=== PATIENT | male | born 1970 | race Caucasian/White ===

== ENCOUNTER 2017-01-30 04:48 | Emergency (ER) | payer MEDICAID ==
[2017-01-30] MEDS ORDERED: Dexamethasone 4 MG/ML SDV IVPUSH ONE (05:11)
--- NOTE | 2017-01-30 05:17 | EDM.PDOC ---
ED HPI GENERAL MEDICAL PROBLEM - General Chief Complaint: Respiratory Problem Stated Complaint: DIFFICULTY BREATHING Time Seen by Provider: 01/30/17 05:04 Source of Information: Reports: Patient, Family History Limitations: Reports: No Limitations - History of Present Illness INITIAL COMMENTS - FREE TEXT/NARRATIVE: 46 year old male with known hx of severe FRANCHESCA, fell asleep last nite without CPAP and was snoring heavily. attempted to place CPAP, but he continued to snore. This AM upon awakening had severe sore throat and sense of swelling in back of throat. Hard to breathe, feeling like he might choke. Prior to sleep was feeling well. Denies fever. Has a hx of mild COPD, not using meds for this. Denies wheezing or cough Duration: Hour(s): (2), Improving Improves with: Reports: None Worsens with: Reports: Breathing Associated Symptoms: Reports: Shortness of Breath. Denies: Fever/Chills, Nausea /Vomiting Right 1-Thumb Pain Score (Numeric/FACES): 3 - Related Data Allergies Allergy/AdvReac Type Severity Reaction Status Date / Time Penicillins Allergy Cannot Verified 01/30/17 05:02 Remember Sulfa (Sulfonamide Allergy Cannot Verified 01/30/17 05:02 Antibiotics) Remember vancomycin Allergy Rash Verified 01/30/17 05:02 Home Meds: Home Meds Ibuprofen [Advil] 400 mg PO Q4H PRN 01/23/14 [History] Gabapentin [Gabapentin] 1 tab PO DAILY 11/27/14 [History] Omeprazole 20 mg PO BID 11/27/14 [History] Aspirin 325 mg PO DAILY 01/30/17 [History] Tamsulosin HCl [Tamsulosin HCl] 0.4 mg PO DAILY 01/30/17 [History] Past Medical History Cardiovascular History: Reports: Hypertension, Pacemaker Respiratory History: Reports: COPD, Sleep Apnea Gastrointestinal History: Reports: GERD Genitourinary History: Reports: BPH - Past Surgical History Other HEENT Surgeries/Procedures: tooth pulled bottom r. Cardiovascular Surgical History: Reports: Pacer Musculoskeletal Surgical History: Reports: Shoulder Surgery Other Musculoskeletal Surgeries/Procedures:: r acl repair. Social & Family History - Tobacco Use Smoking Status *Q: Current Every Day Smoker Years of Tobacco use: 20 Packs/Tins Daily: 1 Used Tobacco, but Quit: No Second Hand Smoke Exposure: Yes - Caffeine Use Caffeine Use: Reports: Coffee - Alcohol Use Days Per Week of Alcohol Use: 0 - Recreational Drug Use Recreational Drug Use: No Drug Use in Last 12 Months: Yes Recreational Drug Type: Reports: Marijuana/Hashish Recreational Drug Use Frequency: Binges ED ROS GENERAL - Review of Systems Review Of Systems: See Below Constitutional: Denies: Fever, Chills, Malaise, Night Sweats HEENT: Reports: Throat Pain, Throat Swelling. Denies: Dental Pain, Ear Pain Respiratory: Reports: Shortness of Breath. Denies: Wheezing, Cough Cardiovascular: Reports: No Symptoms Endocrine: Reports: No Symptoms GI/Abdominal: Reports: No Symptoms : Reports: No Symptoms Musculoskeletal: Reports: No Symptoms Skin: Reports: No Symptoms Neurological: Reports: No Symptoms ED EXAM, GENERAL - Physical Exam Exam: See Below Exam Limited By: No Limitations General Appearance: Alert, Mild Distress Ears: Normal External Exam, Normal Canal, Hearing Grossly Normal Nose: Normal Inspection, Normal Mucosa Throat/Mouth: Normal Lips, Normal Teeth, Other (swelling of uvula with generalized swelling and redness of back of throat. No exudate) Head: Atraumatic, Normocephalic Neck: Normal Inspection, Supple, Non-Tender. No: Lymphadenopathy (R), Lymphadenopathy (L) Respiratory/Chest: No Respiratory Distress, Lungs Clear, Normal Breath Sounds. No: Wheezing Cardiovascular: Normal Peripheral Pulses GI/Abdominal: Normal Bowel Sounds, Soft Course - Vital Signs Last Recorded V/S: Last Vital Signs Temp 36.2 C 01/30/17 04:52 Pulse 63 01/30/17 04:52 Resp 32 H 01/30/17 04:52 BP 142/81 H 01/30/17 04:52 Pulse Ox 96 01/30/17 04:52 - Orders/Labs/Meds Meds: Medications Discontinued Medications Generic Name Dose Route Start Last Admin Trade Name Raghuq PRN Reason Stop Dose Admin Dexamethasone 4 mg 01/30/17 05:11 01/30/17 05:21 Dexamethasone IVPUSH 01/30/17 05:12 4 mg ONETIME ONE Administration - Re-Assessments/Exams Free Text/Narrative Re-Assessment/Exam: Seen on admit with throat pain and problems breathing. Exam showing throat with swelling of uvula. No signs of stridor, lungs clear. Was given 4 mg of IV decadron On re-exam, feeling better, able to swallow, breathing better. Donaldson better after drinking ice water Will discharge home, will send home with 3 day course of prednisone, 20 mg daily 01/30/17 05:42 01/30/17 05:52 Departure - Departure Time of Disposition: 05:54 Disposition: Home, Self-Care 01 Clinical Impression: Uvular edema - Discharge Information Referrals: Maximiliano Patrick MD [Primary Care Provider] - Forms: ED Department Discharge Additional Instructions: Home with use of prednisone for 3 days. Continue use of CPAP for sleep Symptomatic cares with ice water, warm broth
[2017-01-30 06:05] VITALS: BP 124/83
== END 2017-01-30 06:13 | disposition home or self-care (01) ==
LOC: JP.ED 04:48
DX: K13.79 Other lesions of oral mucosa (principal); I10 Essential (primary) hypertension; F17.210 Nicotine dependence, cigarettes, uncomplicated; K21.9 Gastro-esophageal reflux disease without esophagitis; Z98.890 Other specified postprocedural states; Z95.1 Presence of aortocoronary bypass graft; J45.909 Unspecified asthma, uncomplicated; Z88.0 Allergy status to penicillin; Z88.2 Allergy status to sulfonamides; Z88.1 Allergy status to other antibiotic agents
CPT/HCPCS: 96374; 99285; J1100

== ENCOUNTER 2021-02-09 18:22 | Emergency (ER) | payer MEDICAID ==
[2021-02-09 18:49] VITALS: BP 143/85; PULSE 63
--- NOTE | 2021-02-09 19:16 | EDM.PDOC ---
ED HPI GENERAL MEDICAL PROBLEM - General Chief Complaint: Bite:Animal, Insect Stated Complaint: DOG BITE Time Seen by Provider: 02/09/21 18:55 Source of Information: Reports: Patient, RN History Limitations: Reports: No Limitations - History of Present Illness INITIAL COMMENTS - FREE TEXT/NARRATIVE: Patient was bit early this morning by his own small dog who has all of his shot s. 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 1 puncture site at the nailbed on the inner aspect of the thumb next to the forefinger the second bite is on the outer palmar surface. Patient's tetanus is current. He has struggled to keep the wound from bleeding today. However he will leave the bandage on due to the pressure that the bandage has created causing pain in his finger. Nothing seems to make it better and every time he takes the Band-Aid off the wound starts bleeding again. Onset: Today, Sudden Duration: Waxing/Waning Location: Reports: Upper Extremity, Left Quality: Reports: Ache Severity: Mild Improves with: Reports: Immobilization Worsens with: Reports: Movement Context: Reports: Trauma Associated Symptoms: Reports: No Other Symptoms Treatments SUPER[employer]OR EXTRUDING [employer]PARTMENT: Reports: Other (see below) (Compression dressing) - Related Data Allergies Allergy/AdvReac Type Severity Reaction Status Date / Time Penicillins Allergy Cannot Verified 01/30/17 05:02 Remember Sulfa (Sulfonamide Allergy Cannot Verified 01/30/17 05:02 Antibiotics) Remember vancomycin Allergy Rash Verified 01/30/17 05:02 Home Meds: Home Meds Ibuprofen [Advil] 400 mg PO Q4H PRN 01/23/14 [History] Gabapentin 1 tab PO DAILY 11/27/14 [History] Aspirin 325 mg PO DAILY 01/30/17 [History] Terazosin [Hytrin] 5 mg PO DAILY 05/28/17 [History] Ranitidine [Zantac] 150 mg PO ASDIRECTED 05/29/17 [History] Albuterol Sulfate [Albuterol Sulfate Hfa] 8.5 gm IH ASDIRECTED 02/09/21 [History] Budesonide/Glycopyr/Formoterol [Breztri Aerosphere Inhaler] 5.9 gm IH BID 02/09/21 [History] Dicyclomine [Bentyl] 10 mg PO TID 02/09/21 [History] Fludrocortisone [Fludrocortisone Acetate] 0.1 mg PO DAILY 02/09/21 [History] Midodrine 2.5 mg PO BID 02/09/21 [History] Midodrine 5 mg PO DAILY 02/09/21 [History] Past Medical History Cardiovascular History: Reports: Hypertension, Pacemaker Respiratory History: Reports: COPD, Sleep Apnea Gastrointestinal History: Reports: GERD Genitourinary History: Reports: BPH - Infectious Disease History Infectious Disease History: Reports: Chicken Pox - Past Surgical History Other HEENT Surgeries/Procedures: tooth pulled bottom r. Cardiovascular Surgical History: Reports: Pacer Musculoskeletal Surgical History: Reports: Shoulder Surgery Other Musculoskeletal Surgeries/Procedures:: r acl repair. Social & Family History - Tobacco Use Tobacco Use Status *Q: Current Some Day Tobacco User Years of Tobacco use: 30 Packs/Tins Daily: 0.5 - Caffeine Use Caffeine Use: Reports: Coffee ED ROS GENERAL - Review of Systems Review Of Systems: See Below Constitutional: Reports: No Symptoms Skin: Reports: Wound (Puncture wounds to the left thumb following dog bite, patient's own dog) Neurological: Reports: No Symptoms. Denies: Numbness, Tingling Psychiatric: Reports: No Symptoms Hematologic/Lymphatic: Reports: No Symptoms Immunologic: Reports: No Symptoms ED EXAM, ANIMAL BITE - Physical Exam Exam: See Below Exam Limited By: No Limitations General Appearance: Alert, WD/WN, No Apparent Distress Extremities: Normal Range of Motion, Normal Capillary Refill Neurological: Alert, Oriented, CN II-XII Intact, Normal Cognition Skin Exam: Normal Color, Warm/Dry, Other (2 puncture wounds to left thumb from patient's own dog.) Course - Vital Signs Text/Narrative:: Removed dressing. Assessed puncture wounds. First puncture wound next to nail has occluded and is no longer bleeding. The palmar surface puncture was bleeding after first removing dressing. Dressing was resecured to set up for a better look. Once dressing was removed second time puncture wound had stopped bleeding. Area was gently cleaned and assessed. Pressure dressing was reapplied utilizing 4 x 4's and Telfa. Patient instructed to keep thumb elevated above heart do not use extremity. Do not remove dressing until morning. Additional dressing supplies were provided to the patient in the event that wound starts bleeding again. If bleeding returns and patient is unable to stop he should return to the ER for further evaluation. Last Recorded V/S: Last Vital Signs Temp 36.3 C 02/09/21 18:47 Pulse 63 02/09/21 18:47 Resp 16 02/09/21 18:47 BP 143/85 H 02/09/21 18:47 Pulse Ox 95 02/09/21 18:47 - Re-Assessments/Exams Free Text/Narrative Re-Assessment/Exam: 02/09/21 19:24 Status post second dressing application and no bleeding visible on dressing. Patient instructed to keep hand above his heart. Do not use the extremity. Keep dressing intact for the next 12 to 24 hours prior to removal. Tetanus is addressed and current. Patient to return to ER if bleeding starts and is not able to be stopped with pressure dressing. Departure - Departure Time of Disposition: 19:40 Disposition: Home, Self-Care 01 Condition: Good Clinical Impression: Dog bite - Discharge Information *PRESCRIPTION DRUG MONITORING PROGRAM REVIEWED*: Not Applicable *COPY OF PRESCRIPTION DRUG MONITORING REPORT IN PATIENT FRANNY: Not Applicable Instructions: Animal Bite, Adult, [id number] Referrals: PCP,None [Primary Care Provider] - Forms: ED Department Discharge Additional Instructions: Keep dressing secure for the next 12 to 24 hours. Minimal use of hand over the next 12 hours keep elevated above heart. If site starts to bleed again and unable to stop the bleeding with pressure return to the ER for further evaluation.. - Assessment/Plan Assessment:: Dog bite Plan: Keep dressing in place for 12 to 24 hours. Tetanus addressed and and is current. Return to ER if bleeding restarts and unable to stop with pressure dressing.
== END 2021-02-09 19:41 | disposition home or self-care (01) ==
LOC: JP.ED 18:22
DX: S61.052A Open bite of left thumb without damage to nail, initial encounter (principal); I10 Essential (primary) hypertension; J44.9 Chronic obstructive pulmonary disease, unspecified; K21.9 Gastro-esophageal reflux disease without esophagitis; Z72.0 Tobacco use; Z79.82 Long term (current) use of aspirin; Z79.899 Other long term (current) drug therapy; Z88.0 Allergy status to penicillin; Z88.2 Allergy status to sulfonamides; Z88.1 Allergy status to other antibiotic agents; W54.0XXA Bitten by dog, initial encounter
CPT/HCPCS: 99283

== ENCOUNTER 2023-03-23 21:51 | Emergency (ER) | payer MEDICARE, MEDICAID ==
[2023-03-23 22:36] LABS: BASOPHILS PERCENT AUTO 0.3 % (0.1-1.3); EOSINOPHILS ABSOLUTE AUTO 0.04 K/uL (0.00-0.40); EOSINOPHILS PERCENT AUTO 0.5 % (0.0-5.4); HEMATOCRIT 47.5 % (38.4-49.7); HEMOGLOBIN 16.5 g/dL (12.9-16.9); IMMATURE GRAN ABSOLUTE AUTO 0.03 K/uL (0.00-0.23); IMMATURE GRAN PERCENT AUTO 0.4 % (0.0-0.7); LYMPHOCYTES ABSOLUTE AUTO 1.39 K/uL (0.8-3.3); LYMPHOCYTES PERCENT AUTO 17.8 % (11.4-47.7); MEAN CORPUSCULAR HEMOGLOBIN 32.1 pg (31.6-35.5); MEAN CORPUSCULAR HGB CONC 34.7 g/dL (31.6-35.5); MEAN CORPUSCULAR VOLUME 92.4 fL (81.4-99.0); MONOCYTES ABSOLUTE AUTO 0.62 K/uL (0.20-0.90); NEUTROPHILS ABSOLUTE AUTO 5.69 K/uL (1.0-7.6); PLATELET COUNT,PLT 201 K/uL (130-375); RED BLOOD CELL COUNT 5.14 M/uL (4.14-5.76); WHITE BLOOD CELL COUNT,WBC 7.8 K/uL (3.2-11.0)
[2023-03-23 22:38] LABS: BASOPHILS ABSOLUTE AUTO 0.02 K/uL (0.00-0.10)
[2023-03-23 22:58] LABS: A/G RATIO 1.1 (1.2-2.2); ALANINE AMINOTRANSFERASE,ALT 42 U/L (12-78); ALKALINE PHOSPHATASE 47 U/L (46-116); ASPARTATE AMNIOTRANSFERASE,AST 48 U/L (15-37); BLOOD UREA NITROGEN,BUN 10 mg/dL (7-18); CARBON DIOXIDE,CO2 22 mmol/L (21-32); CHLORIDE,CL 105 mmol/L (100-108); GLUCOSE RANDOM 92 mg/dL (74-106); POTASSIUM,K 3.5 mmol/L (3.6-5.2); PROTEIN TOTAL,TP 7.6 g/dL (6.4-8.2); SODIUM,NA 142 mmol/L (140-148); TROPONIN I HIGH SENSITIVITY 7.8 pg/mL (<=60.3)
[2023-03-23 23:20] LABS: BILIRUBIN TOTAL 0.7 mg/dL (0.2-1.0); CREATININE 0.9 mg/dL (0.8-1.3); EST CRCL DRUG DOSING (CG) 99.14 mL/min; ESTIMATED GFR 103 mL/min (>60)
[2023-03-23 23:21] LABS: ANION GAP 18.5 mmol/L (5.0-14.0); C-REACTIVE PROTEIN < 0.05 mg/dL (0.0-0.3)
[2023-03-23 23:27] LABS: CORONAVIRUS COVID-19 NAA NEGATIVE (NEGATIVE); INFLUENZA A NAA NEGATIVE (NEGATIVE); INFLUENZA B NAA NEGATIVE (NEGATIVE); RESPIRATORY SYNCYTIAL VIR NAA NEGATIVE (NEGATIVE)
[2023-03-23] MEDS ORDERED: Prochlorperazine 10 MG/2 ML SDV IVPUSH ONE (23:33)
[2023-03-23] MEDS ORDERED: Lactated Ringers 1,000 ML IV ONE (23:33)
[2023-03-24 01:33] VITALS: BP 129/81; PULSE 63
== END 2023-03-24 01:23 | disposition home or self-care (01) ==
LOC: JP.ED 21:51
DX: G90.9 Disorder of the autonomic nervous system, unspecified (principal); R53.1 Weakness; I10 Essential (primary) hypertension; J44.9 Chronic obstructive pulmonary disease, unspecified; K21.9 Gastro-esophageal reflux disease without esophagitis; F17.210 Nicotine dependence, cigarettes, uncomplicated; Z20.822 Contact with and (suspected) exposure to COVID-19; Z95.0 Presence of cardiac pacemaker; Z79.82 Long term (current) use of aspirin; Z88.0 Allergy status to penicillin; Z88.2 Allergy status to sulfonamides; Z88.1 Allergy status to other antibiotic agents
CPT/HCPCS: 0241U; 36415; 71045; 80053; 83605; 84484; 85025; 86140; 96361; 96374; 99285; J0780; J7120

== ENCOUNTER 2023-03-30 08:15 | Emergency (ER) | payer MEDICARE, MEDICAID ==
[2023-03-30 08:26] VITALS: BP 142/87; PULSE 86
[2023-03-30] MEDS ORDERED: Ketorolac 30 MG/ML SDV IM ONE (08:51)
[2023-03-30] MEDS ORDERED: oxyCODONE 5 MG Tab PO ONE (08:51)
== END 2023-03-30 10:05 | disposition home or self-care (01) ==
LOC: JP.ED 08:15
DX: R07.81 Pleurodynia (principal); J44.9 Chronic obstructive pulmonary disease, unspecified; G47.30 Sleep apnea, unspecified; F17.210 Nicotine dependence, cigarettes, uncomplicated; I10 Essential (primary) hypertension; Z79.82 Long term (current) use of aspirin; Z79.899 Other long term (current) drug therapy; Z88.0 Allergy status to penicillin; Z88.2 Allergy status to sulfonamides; Z88.1 Allergy status to other antibiotic agents
CPT/HCPCS: 71101; 96372; 99283; A9270; J1885; 99284

== ENCOUNTER 2025-01-22 16:56 | Emergency (ER) | payer MEDICAID, MEDICARE ==
[2025-01-22] MEDS: fentaNYL 100 MCG/2 ML SDV IVPUSH ONE (18:04)
[2025-01-22] MEDS: Lactated Ringers 1,000 ML IV ONE (18:04)
[2025-01-22] MEDS: Sodium Chloride 0.9% 10 ML Syringe FLUSH PRN (18:05)
[2025-01-22 18:08] LABS: BASOPHILS ABSOLUTE AUTO 0.04 K/uL (0.00-0.10); BASOPHILS PERCENT AUTO 0.7 % (0.1-1.3); EOSINOPHILS ABSOLUTE AUTO 0.12 K/uL (0.00-0.40); EOSINOPHILS PERCENT AUTO 2.0 % (0.0-5.4); IMMATURE GRAN ABSOLUTE AUTO 0.03 K/uL (0.00-0.23); IMMATURE GRAN PERCENT AUTO 0.5 % (0.0-0.7); LYMPHOCYTES ABSOLUTE AUTO 1.80 K/uL (0.8-3.3); LYMPHOCYTES PERCENT AUTO 30.3 % (11.4-47.7); MONOCYTES ABSOLUTE AUTO 0.50 K/uL (0.20-0.90); MONOCYTES PERCENT AUTO 8.4 % (3.3-12.6); NEUTROPHILS ABSOLUTE AUTO 3.46 K/uL (1.0-7.6); NEUTROPHILS PERCENT AUTO 58.1 % (40.0-78.1); PLATELET COUNT,PLT 224 K/uL (130-375); RED BLOOD CELL COUNT 4.28 M/uL (4.14-5.76); WHITE BLOOD CELL COUNT,WBC 6.0 K/uL (3.2-11.0)
[2025-01-22 18:29] LABS: A/G RATIO 1.1 (1.2-2.2); ALANINE AMINOTRANSFERASE,ALT 43 U/L (12-78); ASPARTATE AMNIOTRANSFERASE,AST 29 U/L (15-37); BILIRUBIN TOTAL 0.3 mg/dL (0.2-1.0); BLOOD UREA NITROGEN,BUN 19 mg/dL (7-18); CARBON DIOXIDE,CO2 26 mmol/L (21-32); CHLORIDE,CL 105 mmol/L (100-108); CREATININE 0.9 mg/dL (0.8-1.3); EST CRCL DRUG DOSING (CG) 96.88 mL/min; ESTIMATED GFR 101 mL/min (>60); GLUCOSE RANDOM 97 mg/dL (74-106); POTASSIUM,K 3.5 mmol/L (3.6-5.2); PROTEIN TOTAL,TP 7.6 g/dL (6.4-8.2); SODIUM,NA 140 mmol/L (140-148)
[2025-01-22 18:43] VITALS: PULSE 60
[2025-01-22 20:16] VITALS: BP 140/87
== END 2025-01-22 20:44 | disposition home or self-care (01) ==
LOC: JP.ED 16:56
DX: G90.9 Disorder of the autonomic nervous system, unspecified (principal); Z88.2 Allergy status to sulfonamides; Z88.0 Allergy status to penicillin; Z79.899 Other long term (current) drug therapy; Z79.82 Long term (current) use of aspirin
CPT/HCPCS: 36415; 80053; 83605; 84484; 85025; 86140; 96361; 96374; 96375; 99284; J1790; J3010; J7120